=== PATIENT | male | born 1970 | race Caucasian/White ===

== ENCOUNTER 2017-06-23 12:17 | Emergency (ER) | payer MEDICAID | END 2017-06-23 13:03 | disposition home or self-care (01) | LOC: E/R 12:17 | DX: R21 Rash and other nonspecific skin eruption (principal) | CPT/HCPCS: 99283; Z7502 ==

== ENCOUNTER 2017-11-17 06:09 | Emergency (ER) | payer MEDICAID | END 2017-11-17 08:44 | disposition home or self-care (01) | LOC: FTE 06:09 | DX: N50.89 Other specified disorders of the male genital organs (principal) | CPT/HCPCS: 99283 ==

== ENCOUNTER 2018-06-15 08:30 | Emergency (ER) | payer MEDICAID | END 2018-06-15 10:30 | disposition home or self-care (01) | LOC: FTE 08:30 | DX: R07.9 Chest pain, unspecified (principal); F17.210 Nicotine dependence, cigarettes, uncomplicated | CPT/HCPCS: 93005; 99283-25 ==